=== PATIENT | male | born 1985 ===

== ENCOUNTER 2016-08-22 17:40 | Emergency (ER) | payer SELFPAY ==
[2016-08-22] MEDS ORDERED: KETOROLAC TROMETHAMINE 30 MG/ML SOL IM ONE (17:47)
[2016-08-22] MEDS ORDERED: APAP/HYDROCODONE 325/5 TAB PO ONE (17:47)
[2016-08-22 17:51] VITALS: RESP 16; TEMP 97.2
[2016-08-22] MEDS ORDERED: KETOROLAC TROMETHAMINE 30 MG/ML SOL ONE (17:52)
[2016-08-22] MEDS ORDERED: APAP/HYDROCODONE 325/5 TAB ONE (17:52)
[2016-08-22 18:53] VITALS: BP 141/88; PULSE 83; O2SAT 96
== END 2016-08-22 18:48 | disposition home or self-care (01) | DRG 563 ==
LOC: ED 17:40
DX: S93.402A Sprain of unspecified ligament of left ankle, initial encounter (principal); X50.1XXA Overexertion from prolonged static or awkward postures, initial encounter; Y93.02 Activity, running
CPT/HCPCS: 73130; 73610; 96372; 99282; 99283; J1885; L4350